=== PATIENT | female | born 1975 | race Two or more races ===

== ENCOUNTER 2020-01-09 15:57 | Emergency (ER) | payer OTHER ==
[~2020-01-09] VITALS: Ht 172.7 cm; Wt 88.9 kg
== END 2020-01-09 16:37 | disposition home or self-care (01) ==
LOC: ER 15:57
DX: S01.82XA Laceration with foreign body of other part of head, initial encounter (principal); W45.8XXA Other foreign body or object entering through skin, initial encounter; Y93.89 Activity, other specified; Y92.098 Other place in other non-institutional residence as the place of occurrence of the external cause; Y99.8 Other external cause status

== ENCOUNTER 2025-01-10 21:56 | Emergency (ER) | payer OTHER ==
[~2025-01-10] VITALS: Ht 162.6 cm; Wt 95.3 kg
[2025-01-11] MEDS ORDERED: TRIAMCINOLONE ACETONIDE 40 MG/ML VIAL IM STA (01:10)
[2025-01-11] MEDS ORDERED: TRAMADOL HCL 50 MG TABLET PO STA (01:10)
[2025-01-11] MEDS ORDERED: DOLOGESIC-DF 51 EACH PO (01:44)
== END 2025-01-11 02:13 ==
LOC: ER 22:19
DX: S93.492A Sprain of other ligament of left ankle, initial encounter (principal); X50.9XXA Other and unspecified overexertion or strenuous movements or postures, initial encounter; Y93.89 Activity, other specified; Y92.89 Other specified places as the place of occurrence of the external cause; Z88.8 Allergy status to other drugs, medicaments and biological substances; J45.909 Unspecified asthma, uncomplicated